=== PATIENT | female | born 1955 | race Caucasian/White ===

== ENCOUNTER 2018-06-09 06:52 | Day surgery (SDC) | payer MEDICAID ==
[2018-06-09] MEDS ORDERED: CLINDAMYCIN 600 MG/50 ML D5W IVPB IVPB (07:00)
[2018-06-09] MEDS ORDERED: CEFAZOLIN 1 GM INJ (07:00)
[2018-06-09] MEDS ORDERED: DEXAMETHASONE 4 MG/ML 5 ML INJ ×2 (07:00→11:58)
[2018-06-09] MEDS ORDERED: LIDOCAINE 2% (SDV) 5 ML INJ ×2 (07:00→12:33)
[2018-06-09] MEDS ORDERED: METOCLOPRAMIDE 10 MG INJ (07:00)
[2018-06-09] MEDS ORDERED: PROPOFOL 100 ML (11:24)
[2018-06-09] MEDS ORDERED: ONDANSETRON 4 MG INJ ×2 (11:58→12:33)
[2018-06-09] MEDS ORDERED: KETOROLAC 30 MG INJ (11:58)
[2018-06-09] MEDS ORDERED: FENTAnyl 50 MCG/ML VIAL (12:31)
[2018-06-09] MEDS ORDERED: MIDAZOLAM 1 MG/ML 2 ML INJ (12:32)
[2018-06-09] MEDS ORDERED: PROPOFOL 20 ML (12:33)
[2018-06-09] MEDS ORDERED: SUGAMMADEX SODIUM 200 MG/2 ML VIAL IV (13:08)
[2018-06-09] MEDS ORDERED: PROVENTIL HFA 6.7GM INHALER (13:13)
[2018-06-09] MEDS ORDERED: ISOSULFAN BLUE 1% 5 ML INJ SC (13:39)
[2018-06-09] MEDS ORDERED: PHENYLephrine 10 MG INJ (14:04)
[2018-06-09] MEDS ORDERED: KETOROLAC 30 MG INJ IV (15:30)
[2018-06-09] MEDS ORDERED: LABETALOL HCL 20MG INJ IV (15:30)
[2018-06-09] MEDS ORDERED: LEVALBUTEROL (NEB) 1.25 MG/0.5 ML AMP HHN (15:30)
[2018-06-09] MEDS ORDERED: ONDANSETRON 4 MG INJ IV (15:30)
[2018-06-09] MEDS ORDERED: HYDROmorphONE 1 MG/5 ML IV SYRINGE IV ×3 (15:30)
[2018-06-09] MEDS ORDERED: DIPHENHYDRAMINE 50 MG INJ IV (15:30)
[2018-06-09] MEDS ORDERED: hydrALAzine 20 MG INJ IV (15:30)
[2018-06-09] MEDS ORDERED: FENTAnyl 50 MCG/ML VIAL IV ×2 (15:30)
[2018-06-09] MEDS ORDERED: MEPERIDINE 25 MG INJ IV (15:30)
== END 2018-06-09 16:50 | disposition home or self-care (01) ==
LOC: SDS 06:52
DX: D24.1 Benign neoplasm of right breast (principal); N60.21 Fibroadenosis of right breast; N60.91 Unspecified benign mammary dysplasia of right breast; I10 Essential (primary) hypertension; E11.9 Type 2 diabetes mellitus without complications
CPT/HCPCS: 19120; 71045; 82962; 88307; 93005